=== PATIENT | female | born 1995 | race Caucasian/White ===

== ENCOUNTER 2021-07-21 03:51 | Day surgery (SDC) | payer OTHER ==
[2021-07-21 05:20] VITALS: BMI 26.0
== END 2021-07-21 07:20 | disposition home or self-care (01) ==
LOC: CSHLD/OP 03:51
PROVIDERS: ATTEND Family Medicine
DX: O47.1 False labor at or after 37 completed weeks of gestation (principal); O48.0 Post-term pregnancy; Z3A.40 40 weeks gestation of pregnancy; Z88.8 Allergy status to other drugs, medicaments and biological substances; Z79.899 Other long term (current) drug therapy
CPT/HCPCS: 99282

== ENCOUNTER 2021-07-22 23:39 | Day surgery (SDC) | payer OTHER ==
[2021-07-23 01:58] VITALS: BMI 26.0
[2021-07-23] MEDS ORDERED: hydrALAZINE 20 MG/ML VIAL SLOW IVP PRN (08:15)
== END 2021-07-23 02:57 | disposition home or self-care (01) ==
LOC: CSHLD/OP 23:39
PROVIDERS: ATTEND Family Medicine
DX: O47.1 False labor at or after 37 completed weeks of gestation (principal); O48.0 Post-term pregnancy; Z3A.40 40 weeks gestation of pregnancy; Z88.8 Allergy status to other drugs, medicaments and biological substances
CPT/HCPCS: 99283

== ENCOUNTER 2021-07-28 18:26 | Inpatient (IN) | payer OTHER ==
[2021-07-28 20:02] LABS: Hemoglobin 13.6 g/dL (12.0-15.5); Mean Corpuscular HGB CONC 32.9 g/dL (32.0-36.0); Mean Corpuscular Hemoglobin 30.4 pg (27.0-33.0); Mean Corpuscular Volume 92.4 fl (81.6-98.3); Mean Platelet Volume 10.7 fl (7.4-10.4); Platelet Count 154 10x3/uL (150-450); Red Blood Cell (RBC) Count 4.47 10x6/uL (3.90-5.03); White Blood Cell (WBC) Count 8.4 10x3/uL (3.5-10.5)
[2021-07-28] MEDS ORDERED: Misoprostol 200 MCG TAB RC PRN (20:30)
[2021-07-28] MEDS ORDERED: NS w/ Oxytocin 30 units 500 ML IV SCH ×2 (20:30)
[2021-07-28] MEDS ORDERED: Lactated Ringer's 1,000 ML IV SCH ×2 (20:30)
[2021-07-28] MEDS ORDERED: Methylergonovine 0.2 MG/ML VIAL IM PRN (20:30)
[2021-07-28] MEDS ORDERED: Butorphanol Tartrate 1 MG/ML VIAL SLOW IVP PRN (20:30)
[2021-07-28] MEDS ORDERED: Promethazine HCl 25 MG/ML VIAL IM PRN (20:30)
[2021-07-28] MEDS ORDERED: Ondansetron PF 4 MG/2 ML Vial IVP PRN (20:30)
[2021-07-28] MEDS ORDERED: Ibuprofen 800 MG TAB PO PRN (20:30)
[2021-07-28] MEDS ORDERED: Lidocaine 1% (PF) 30 ML VIAL SC PRN (20:30)
[2021-07-28] MEDS ORDERED: Acetaminophen 500 MG TAB PO PRN (20:30)
[2021-07-28] MEDS ORDERED: Carboprost 250 MCG/ML AMP IM PRN (20:30)
[2021-07-28] MEDS ORDERED: hydrALAZINE 20 MG/ML VIAL SLOW IVP PRN (20:30)
[2021-07-28 20:33] LABS: HBSAg Index 0.17 S/CO (0-0.99); HIV (1/2) Antibody/Antigen Non-Reactive (NonReactive); HIV 1/2 INDEX 0.07 S/CO (<1.00); Hep B Surf Ag Non-Reactive S/CO (NonReactive); Syphilis Antibody Nonreactive (Nonreactive); Syphilis Antibody Index 0.05 S/CO (<1.00 Non-Reactive)
[2021-07-28 20:37] LABS: SARS-CoV-2 NAA Rapid Test Not Detected (NotDetected)
[2021-07-28] MEDS: NS w/ Oxytocin 30 units 500 ML IVPB SCH ×2 (22:00→23:36)
[2021-07-28 22:47] VITALS: BMI 25.4
[2021-07-29] MEDS ORDERED: Bisacodyl 10 MG SUPP PR PRN (08:37)
[2021-07-29] MEDS ORDERED: Benzocaine-Menthol 82.5 ML CAN TOP PRN (08:37)
[2021-07-29] MEDS ORDERED: HYDROcodone/Acetaminophen 5/325 mg Tablet PO PRN (08:37)
[2021-07-29] MEDS ORDERED: Milk Of Magnesia 30 ML UDCUP PO PRN (08:37)
[2021-07-29] MEDS ORDERED: hydrALAZINE 20 MG/ML VIAL SLOW IVP PRN (08:37)
[2021-07-29] MEDS: Ibuprofen 800 MG TAB PO SCH ×2 (08:45→16:48)
[2021-07-29] MEDS ORDERED: Ferrous Sulfate 325 MG TAB PO SCH (09:00)
[2021-07-29] MEDS: Ferrous Sulfate 325 MG TAB PO SCH (16:41)
[2021-07-29] MEDS: Docusate Calcium (SURFAK) 240 MG CAP PO SCH ×2 (16:44→20:39)
[2021-07-30] MEDS: Ibuprofen 800 MG TAB PO SCH ×2 (01:18→08:04)
[2021-07-30 04:59] VITALS: TEMP 98.4
[2021-07-30] MEDS: Ferrous Sulfate 325 MG TAB PO SCH (07:20)
[2021-07-30 07:54] VITALS: BP 111/61
[2021-07-30] MEDS: Docusate Calcium (SURFAK) 240 MG CAP PO SCH (08:04)
[2021-07-30] MEDS ORDERED: Boostrix 0.5 ML (Tdap) VIAL IM ONE (08:37)
== END 2021-07-30 11:35 | disposition home or self-care (01) | DRG 807 ==
LOC: CSHLD 18:26 → CSHPP 07-29 16:15
PROVIDERS: ADMIT Family Medicine; ATTEND Family Medicine
PROC: 10E0XZZ Delivery of Products of Conception, External Approach (ICD-10-PCS; principal; 2021-07-28)
DX: O70.0 First degree perineal laceration during delivery (principal); Z37.0 Single live birth; Z3A.41 41 weeks gestation of pregnancy; O69.81X0 Labor and delivery complicated by cord around neck, without compression, not applicable or unspecified; Z20.822 Contact with and (suspected) exposure to COVID-19
CPT/HCPCS: 36415; 85027; 86780; 86850; 86900; 86901; 87340; 87389; J2590; U0002

== ENCOUNTER 2023-10-26 18:00 | Inpatient (IN) | payer OTHER ==
[2023-10-26 18:51] VITALS: BMI 26.0
[2023-10-26] MEDS ORDERED: Carboprost 250 MCG/ML AMP IM PRN (20:11)
[2023-10-26] MEDS ORDERED: Methylergonovine 0.2 MG/ML VIAL IM PRN (20:11)
[2023-10-26] MEDS ORDERED: hydrALAZINE 20 MG/ML VIAL SLOW IVP PRN (20:11)
[2023-10-26] MEDS ORDERED: Acetaminophen 500 MG TAB PO PRN (20:11)
[2023-10-26] MEDS ORDERED: Ondansetron PF 4 MG/2 ML Vial IVP PRN (20:11)
[2023-10-26] MEDS ORDERED: Misoprostol 200 MCG TAB PR PRN (20:11)
[2023-10-26] MEDS ORDERED: HYDROcodone/Acetaminophen 5/325 mg Tablet PO PRN (20:11)
[2023-10-26] MEDS ORDERED: Lidocaine 1% (PF) 30 ML VIAL SC PRN (20:11)
[2023-10-26] MEDS ORDERED: Butorphanol Tartrate 1 MG/ML VIAL SLOW IVP PRN (20:11)
[2023-10-26] MEDS ORDERED: Promethazine HCl 25 MG/ML VIAL IM PRN (20:11)
[2023-10-26] MEDS ORDERED: Oxytocin 30 units/NS 500 ML 500 ML IV SCH ×2 (20:15)
[2023-10-26 20:25] LABS: Hematocrit 34.5 % (34.9-44.5); Hemoglobin 11.3 g/dL (12.0-15.5); Mean Corpuscular HGB CONC 32.8 g/dL (32.0-36.0); Mean Corpuscular Hemoglobin 26.8 pg (27.0-33.0); Mean Corpuscular Volume 81.9 fl (81.6-98.3); Mean Platelet Volume 11.1 fl (7.4-10.4); Platelet Count 179 10x3/uL (150-450); RBC Distribution Width 13.9 % (11.5-14.5); Red Blood Cell (RBC) Count 4.21 10x6/uL (3.90-5.03); White Blood Cell (WBC) Count 8.4 10x3/uL (3.5-10.5)
[2023-10-26 20:52] LABS: HBSAg Index 0.22 S/CO (0-0.99); Hep B Surf Ag - L&D Non-Reactive S/CO (NonReactive)
[2023-10-26 20:53] LABS: Syphilis Antibody Nonreactive (Nonreactive); Syphilis Antibody Index 0.08 S/CO (<1.00 Non-Reactive)
[2023-10-27] MEDS: Ibuprofen 800 MG TAB PO PRN (05:28)
[2023-10-27] MEDS ORDERED: hydrALAZINE 20 MG/ML VIAL SLOW IVP PRN (06:30)
[2023-10-27] MEDS ORDERED: HYDROcodone/Acetaminophen 5/325 mg Tablet PO PRN (06:30)
[2023-10-27] MEDS ORDERED: Milk Of Magnesia 30 ML UDCUP PO PRN (06:30)
[2023-10-27] MEDS ORDERED: Bisacodyl 10 MG SUPP PR PRN (06:30)
[2023-10-27] MEDS ORDERED: Benzocaine-Menthol 82.5 ML CAN TOP PRN (06:30)
[2023-10-27] MEDS: Oxytocin 30 units/NS 500 ML 500 ML ONE (08:27)
[2023-10-27] MEDS: Boostrix 0.5 ML (Tdap) VIAL (>/=7 yrs of age) IM ONE (08:27)
[2023-10-27] MEDS: Ferrous Sulfate 325 MG TAB PO SCH (08:28)
[2023-10-27] MEDS: Docusate 100 MG CAP PO SCH (08:56)
[2023-10-27] MEDS: Ibuprofen 800 MG TAB PO SCH (14:28)
[2023-10-28 07:28] VITALS: BP 107/53; TEMP 98.2
== END 2023-10-28 09:25 | disposition home or self-care (01) | DRG 807 ==
LOC: CSHLD 18:07 → CSHPP 10-27 06:10
PROVIDERS: ADMIT Family Medicine; ATTEND Family Medicine
PROC: 10E0XZZ Delivery of Products of Conception, External Approach (ICD-10-PCS; principal; 2023-10-27)
DX: O69.81X0 Labor and delivery complicated by cord around neck, without compression, not applicable or unspecified (principal); Z37.0 Single live birth; Z3A.40 40 weeks gestation of pregnancy
CPT/HCPCS: 85027; 86780; 86850; 86900; 86901; 87340